=== PATIENT | female | born 1965 | race Caucasian/White ===

== ENCOUNTER 2018-06-15 05:31 | Day surgery (SDC) | payer OTHER ==
[~2018-06-15 05:31] MED LIST: KOMBIGLYZE XR1 EAC2
== END 2018-06-15 13:10 | disposition home or self-care (01) ==
LOC: CIR.AMB 05:31
DX: N93.8 Other specified abnormal uterine and vaginal bleeding (principal)

== ENCOUNTER 2018-08-15 14:00 | Inpatient (IN) | payer OTHER ==
[~2018-08-15] VITALS: Ht 172.7 cm; Wt 78.0 kg
[2018-08-15] MEDS ORDERED: KOMBIGLYZE XR1 EAC2 PO (16:52)
== END 2018-08-27 11:58 | DRG 743 ==
LOC: SURG 08-17 14:00 → OB/GYN 08-24 05:40 → O/R 08-24 05:40 → OB/GYN 08-24 11:15 → SURG 08-24 14:00 → OB/GYN 08-27 11:58
PROVIDERS: Obstetrics & Gynecology
PROC: 0UT24ZZ Resection of Bilateral Ovaries, Percutaneous Endoscopic Approach (ICD-10-PCS; 2018-08-24)
PROC: 0UT94ZZ Resection of Uterus, Percutaneous Endoscopic Approach (ICD-10-PCS; principal; 2018-08-24 07:00)
DX: D25.1 Intramural leiomyoma of uterus (principal); N80.0 Endometriosis of uterus; N80.1 Endometriosis of ovary; N83.12 Corpus luteum cyst of left ovary; N83.11 Corpus luteum cyst of right ovary